=== PATIENT | male | born 1945 | race Caucasian/White ===

== ENCOUNTER → 2019-07-03 15:02 | Outpatient (CLI) | payer MEDICARE, OTHER, SELFPAY ==
--- NOTE | 2019-07-03 16:57 | PM.TREADMILL ---
Cardiac Stress Test Report Referral & Results Date Patient Seen: 07/03/19 Requesting provider: Bernabe Cunningham Indication: Cardiac murmur Rest ECG: Unremarkable Procedure Note: Today following both written and verbal informed consent, the patient was exercised according to a standard Mannie protocol. The patient exercised for a total of 9 minutes 2 seconds achieving a maximum heart rate of 137. Patient's maximum systolic blood pressure was 158. This was an estimated 10.1 MET's. There are no ST-T segment changes identified Normal heart rate and blood pressure response to exercise Functional aerobic impairment way off the scale estimate at least-40% on the active scale or 140% normal Occasional PAC and brief (2-4 beats) runs of SVT Occasional PVCs including ventricular couplets Impression: No evidence of ischemia Amazing exercise capacity Ventricular and supraventricular dysrhythmias as above Please note: Actual ECG tracings can be found in the PACS system.
== END ==
PROVIDERS: Visit Provider Internal Medicine Cardiovascular Disease
DX: R01.1 Cardiac murmur, unspecified (principal); I49.3 Ventricular premature depolarization; I47.1 Supraventricular tachycardia
CPT/HCPCS: 93016; 93017; 93018

== ENCOUNTER → 2023-09-27 12:22 | Outpatient (CLI) | payer MEDICARE, OTHER, SELFPAY ==
--- NOTE | 2023-09-27 12:25 | DI.RAD.S_ITS ---
PROCEDURE: XR ELBOW RT MIN 3V INDICATIONS: right elbow injury, fall from stand TECHNIQUE: 3 views of the elbow were acquired. COMPARISON: None. FINDINGS: Bones: No fractures or dislocations. No suspicious bony lesions. Soft tissues: No elbow joint effusion. No suspicious soft tissue calcifications. IMPRESSION: No acute bony abnormality or significant joint effusion. Approved by: Jw Sadler M.D. on 09/27/2023 at 19:36
== END ==
LOC: RAD 12:25
PROVIDERS: Referring Provider Physician Assistant Surgical; Visit Provider Physician Assistant Surgical
DX: S59.901A Unspecified injury of right elbow, initial encounter (principal); W19.XXXA Unspecified fall, initial encounter
CPT/HCPCS: 73080